=== PATIENT | female | born 1965 | race Two or more races ===

== ENCOUNTER 2016-09-26 23:50 | Emergency (ER) | payer OTHER ==
[2016-09-27] MEDS ORDERED: ONDANSETRON 4 MG/2 ML VIAL IVPB ONE (01:25)
[2016-09-27] MEDS ORDERED: SODIUM CHLORIDE 1,000 ML IV STA ×2 (01:25→03:07)
[2016-09-27] MEDS ORDERED: PANTOPRAZOLE SODIUM 40 MG in SODIUM CHLORIDE 100 ML IVPB ONE (01:25)
[2016-09-27] MEDS ORDERED: PANTOPRAZOLE SODIUM 100 ML IVPB ONE (01:33)
[2016-09-27] MEDS ORDERED: ONDANSETRON 4 MG/2 ML VIAL ONE (01:33)
[2016-09-27 02:04] VITALS: BMI 27.8
[2016-09-27 02:06] LABS: BASOPHIL 0.7 % (0-2.0); EOSINOPHIL 1.8 % (0-4.5); MCH 28.8 pg (25.7-33.7); MCHC 33.5 g/dl (32.0-36.0); MEAN CELL VOLUME 86.1 fl (80-96); MEAN PLT VOLUME 7.4 fl (7.5-11.1); NEUTROPHILS 64.9 % (42.8-82.8); PLATELET COUNT 269 K/MM3 (134-434); RDW 13.3 % (11.6-15.6); WHITE BLOOD COUNT 7.4 K/mm3 (4.0-10.0)
--- NOTE | 2016-09-27 03:04 | PDOC ---
History of Present Illness - General Chief Complaint: Vomiting/Diarrhea Stated Complaint: DIARRHEA Time Seen by Provider: 09/27/16 01:19 History Source: Patient Exam Limitations: No Limitations - History of Present Illness Travel History: No Initial Comments: 09/27/16 02:56 51yo Female patient w/ no significant past medical history presents to ED c/o 3 days history of diarrhea. Patient c/o generalized abdominal pain, fever, chills , sweating and vomiting x 1 day. Recent travel from [facility]. No change in appetite. LNMP: September 17. Patient denies any other complaints at this time. Timing/Duration: reports: constant Quality: reports: moderate Abdominal Pain Onset Location: reports: generalized abdomen Pain Radiation: reports: no radiation Activities at Onset: reports: no specific activity Treatment Prior to Arrive: worse with: analgesics, antacids, cold pack, heat, laxative, enema, other Aggravating Factors: worse with: None, Defecation, Eating, Emotional upset, Exertion, [place], Movement, Voiding, Change in position Alleviating Factors: worse with: None, Belching, Shallow Breathing, Defecation, Eating, Holding Breath, Passing Gas, Change in Position, Rest, Voiding, Vomiting Past History - Travel Traveled outside of the country in the last 30 days: Yes If so, where?: [place] Close contact w/someone who was outside of country & ill: No - Past Medical History Allergies/Adverse Reactions: Allergies Allergy/AdvReac Type Severity Reaction Status Date / Time No Known Allergies Allergy Verified 09/27/16 01:28 Home Medications: Ambulatory Orders Ciprofloxacin HCl [Cipro] 500 mg PO BID #14 tablet 09/27/16 Asthma: Yes Hypercholesterolemia: Yes - Immunization History Immunization Up to Date: No - Psycho/Social/Smoking Cessation Hx Anxiety: No Suicidal Ideation: No Smoking History: Never smoked Have you smoked in the past 12 months: No Hx Alcohol Use: No Drug/Substance Use Hx: No Substance Use Type: None Abd/GI Specific PMHX - Complaint Specific PMHX Colitis: No Diverticulitis: No Gall Bladder Disease: No GERD: No Hepatitis: No Irritable Bowel Synd (IBS): No Pancreatitis: No GI Ulcer Disease: No Review of Systems - Review of Systems Able to Perform ROS?: Yes Is the patient limited Icelandic proficient: No Constitutional: Yes: Chills, Fever ABD/GI: Yes: Diarrhea, Vomiting, Abdominal cramping. No: Abdominal Distended, Constipated, Nausea, Poor Appetite, Poor Fluid Intake : No: Burning, Dysuria, Flank Pain Musculoskeletal: No: Back Pain Integumentary: Yes: Sweating All Other Systems: Reviewed and Negative *Physical Exam - Vital Signs Last Vital Signs Temp Pulse Resp BP Pulse Ox 99.2 F 114 H 18 151/103 100 09/27/16 01:29 09/27/16 01:09/27/16 01:09/27/16 01:09/27/16 01:29 - Physical Exam General Appearance: Yes: Nourished, Appropriately Dressed. No: Apparent Distress, Mild Distress, Moderate Distress, Severe Distress Neck: positive: Trachea midline, Supple. negative: Decreased range of motion, Stridor, Lymphadenopathy (R), Lymphadenopathy (L) Respiratory/Chest: positive: Lungs Clear, Normal Breath Sounds. negative: Chest Tender, Respiratory Distress, Accessory Muscle Use, Labored Respiration, Rapid RR, Crackles, Rhonchi, Stridor, Wheezing Cardiovascular: positive: Regular Rhythm, Regular Rate Gastrointestinal/Abdominal: positive: Normal Bowel Sounds, Soft. negative: Distended, Guarding, Rebound, Tenderness Musculoskeletal: positive: Normal Inspection. negative: CVA Tenderness Extremity: positive: Normal Capillary Refill, Normal Inspection, Normal Range of Motion. negative: Pedal Edema, Swelling, Calf Tenderness, Erythema, Inflammation Integumentary: positive: Normal Color, Dry, Warm Neurologic: positive: chief maintenance supervisor II-XII NML intact, Fully Oriented, Alert, Normal Mood/ Affect, Normal Response, Motor Strength 5/5 ED Treatment Course - LABORATORY CBC & Chemistry Diagram: 09/27/16 01:56 09/27/16 02:58 - ADDITIONAL ORDERS Additional order review: Laboratory Results 09/27/16 09/27/16 09/27/16 02:34 01:51 01:51 Sodium Cancelled Cancelled Potassium Cancelled Cancelled Chloride Cancelled Cancelled Carbon Dioxide Cancelled Cancelled Anion Gap Cancelled Cancelled BUN Cancelled Cancelled Creatinine Cancelled Cancelled Random Glucose Cancelled Cancelled Lactic Acid 2.1 H* Calcium Cancelled Cancelled Total Bilirubin Cancelled Cancelled Direct Bilirubin Cancelled Cancelled AST Cancelled Cancelled ALT Cancelled Cancelled Alkaline Phosphatase Cancelled Cancelled Total Protein Cancelled Cancelled Albumin Cancelled Cancelled Total Amylase Cancelled Cancelled Lipase Cancelled Cancelled 09/27/16 01:56 RBC 4.42 MCV 86.1 MCHC 33.5 RDW 13.3 MPV 7.4 L Neutrophils % 64.9 Lymphocytes % 27.8 Monocytes % 4.8 Eosinophils % 1.8 Basophils % 0.7 - Medications Given in the ED: ED Medications Discontinued Medications Generic Name Dose Route Start Last Admin Trade Name Ally PRN Reason Stop Dose Admin Pantoprazole Sodium 40 mg/ 100 mls @ 200 mls/hr 09/27/16 01:25 09/27/16 01:54 Sodium Chloride IVPB 09/27/16 01:54 200 mls/hr ONCE ONE Administration Sodium Chloride 1,000 mls @ 1,000 mls/hr 09/27/16 01:25 09/27/16 01:54 Normal Saline - IV 09/27/16 02:24 1,000 mls/hr ASDIR STA Administration Ondansetron HCl 8 mg 09/27/16 01:25 09/27/16 01:58 Zofran Injection IVPB 09/27/16 01:26 Not Given ONCE ONE *DC/Admit/Observation/Transfer Diagnosis at time of Disposition: Travelers' diarrhea - Discharge Dispostion Disposition: HOME Condition at time of disposition: Improved Admit: No - Prescriptions Prescriptions: Ciprofloxacin HCl [Cipro] 500 mg PO BID #14 tablet - Referrals Referrals: Vidya Pearson MD [Primary Care Provider] - - Patient Instructions Printed Discharge Instructions: Traveler's Diarrhea: Don't Let It Ruin Your Vacation, Traveler's Diarrhea Additional Instructions: Follow up with primary care provider this week for further evaluation. Call to schedule appointment. Take medications as prescribed. If your symptoms continue after 48 hours or get worse return for further evaluation. Drink plenty fluid. ( Water). Print Language: MACEDONIAN - Post Discharge Activity Work/School Note: Back to Work
[2016-09-27 03:30] LABS: ALBUMIN 2.9 g/dl (3.4-5.0); ALK PHOS 57 U/L (45-117); AMYLASE 30 U/L (25-115); ANION GAP 8 (8-16); BILIRUBIN,DIRECT 0.1 mg/dL (0.0-0.2); BILIRUBIN,TOTAL 0.2 mg/dL (0.2-1.0); CO2 25 mmol/L (21-32); CREATININE 0.7 mg/dL (0.55-1.02); GLUCOSE,RANDOM 93 mg/dL (74-106); SGPT/ALT 19 U/L (12-78); TOT PROT 6.7 g/dl (6.4-8.2)
[2016-09-27 03:32] LABS: SGOT/AST 24 U/L (15-37)
[2016-09-27 03:41] LABS: URINE APPEARANCE CLEAR; URINE BILIRUBIN NEGATIVE (NEGATIVE); URINE COLOR STRAW; URINE GLUCOSE (UA) NEGATIVE (NEGATIVE); URINE KETONE NEGATIVE (NEGATIVE); URINE LEUK ESTERASE NEGATIVE (NEGATIVE); URINE NITRITE NEGATIVE (NEGATIVE); URINE PROTEIN NEGATIVE (NEGATIVE); URINE UROBILINOGEN NEGATIVE E.U./dl (0.2-1.0)
[2016-09-27 03:46] LABS: URINE BLOOD 2+ (NEGATIVE)
[2016-09-27 04:24] LABS: URINE RBC 7 /hpf (0-3); URINE WBC 1 /hpf (3-5)
[2016-09-27] MEDS ORDERED: POTASSIUM CHLORIDE TABS 20 MEQ TABLET.ER (FP) PO ONE (05:19)
[2016-09-27] MEDS ORDERED: CIPROFLOXACIN 400 MG/D5W 200 ML IVPB ONE (05:19)
[2016-09-27] MEDS ORDERED: POTASSIUM CHLORIDE TABS 10 MEQ TABLET.ER (FP) ONE (05:39)
[2016-09-27 06:48] VITALS: PULSE 88
[2016-09-27] MEDS ORDERED: diphenhydrAMINE HCL 25 MG CAPSULE (FP) PO ONE ×2 (07:18→07:38)
[2016-09-27 08:05] VITALS: BP 124/76; TEMP 98.2
== END 2016-09-27 08:00 | disposition home or self-care (01) ==
LOC: JER 23:50
PROC: 3E0337Z Introduction of Electrolytic and Water Balance Substance into Peripheral Vein, Percutaneous Approach (ICD-10-PCS; principal; 2016-09-26)
PROC: 3E033GC Introduction of Other Therapeutic Substance into Peripheral Vein, Percutaneous Approach (ICD-10-PCS; 2016-09-26)
PROC: 3E033GC Introduction of Other Therapeutic Substance into Peripheral Vein, Percutaneous Approach (ICD-10-PCS; 2016-09-26)
DX: R19.7 Diarrhea, unspecified (principal)
CPT/HCPCS: 36415; 80048; 80076; 81003; 81015; 82150; 83605; 83690; 84703; 85025; 87086; 99283-25